=== PATIENT | female | born 1940 | race Caucasian/White ===

== ENCOUNTER → 2020-05-02 | Outpatient (CLI) | payer MEDICARE ==
--- NOTE | 2020-05-02 17:28 | RAD ---
Chest radiograph 05/02/2020 12:00 AM INDICATION: Shortness of breath COMPARISON: None available TECHNIQUE: Frontal and lateral views of the chest are provided. FINDINGS: The cardiomediastinal silhouette is within normal limits. There are no pleural effusions. There is no pulmonary vascular congestion. There is no pneumothorax. Bandlike density at the lateral right mid lung and right lung base most favor subsegmental atelectasis versus scarring. Pulmonary emphysematous changes are identified. No significant osseous abnormality is identified. Dextro convex scoliosis of the thoracic spine is noted. IMPRESSION: COPD changes with right basilar and mid lung subsegmental atelectasis versus scarring. Electronically signed by: Blanca Sharma MD (05/02/2020 5:25 PM) [id number]
== END | disposition home or self-care (01) ==
LOC: RAD 12:56
PROVIDERS: ATTEND Family Medicine
DX: J43.8 Other emphysema (principal); J98.11 Atelectasis; J98.4 Other disorders of lung; M41.84 Other forms of scoliosis, thoracic region
CPT/HCPCS: 71046

== ENCOUNTER → 2021-01-22 | Outpatient (CLI) | payer MEDICARE ==
--- NOTE | 2021-01-22 17:56 | RAD ---
Left humerus 2 views. HISTORY: Pain and tenderness distal left humerus 2 views were taken of the left humerus. There is no fracture or osseous abnormality noted in the left humerus. IMPRESSION: 1. Negative left humerus. Electronically signed by: Sunil Correa MD (01/22/2021 5:53 PM) [facility]
== END ==
LOC: RAD 14:13
PROVIDERS: ATTEND Family Medicine
DX: M25.522 Pain in left elbow (principal)
CPT/HCPCS: 73060

== ENCOUNTER → 2021-03-06 | Outpatient (CLI) | payer MEDICARE ==
--- NOTE | 2021-03-06 10:19 | KCIC ---
Examination: MRI of the left shoulder without contrast HISTORY: History of left shoulder pain, weakness COMPARISON: None available TECHNIQUE: Multiplanar, multisequence MR imaging of the left shoulder performed without contrast. FINDINGS: The long head of the biceps tendon within the bicipital groove. The attachment of the long head the b iceps tendon to the superior labral anchor grossly appears intact. The attachment of the subscapulari s tendon grossly appears intact. The attachment of the supraspinatus, infraspinatus tendon grossly ap pears intact. There is mild increased signal identified in the supraspinatus tendon likely tendinosis . The muscle bulk grossly appears unremarkable. Moderate degenerative changes acromioclavicular joint. The acromion is type II. There is mild increas ed signal identified in the superior labrum extending posteriorly likely tear. Fat is present within the rotator interval. Moderate degenerative changes acromioclavicular joint, glenohumeral joint. IMPRESSION: 1. Mild increased signal identified in the superior labrum extending posteriorly likely tear. 2. Mild tendinosis supraspinatus tendon. 3. Moderate degenerative changes acromioclavicular joint, glenohumeral joint. Electronically signed by: Josh Martinez MD (03/06/2021 10:17 AM) [id number]
== END ==
LOC: KCIC MRI 08:29
PROVIDERS: ATTEND Orthopaedic Surgery
DX: M19.012 Primary osteoarthritis, left shoulder (principal); M77.8 Other enthesopathies, not elsewhere classified; Z68.22 Body mass index [BMI] 22.0-22.9, adult
CPT/HCPCS: 73221

== ENCOUNTER → 2021-03-22 | Outpatient (CLI) | payer MEDICARE ==
[~2021-03-22] MED LIST: GADOTERATE 5 MMOL/10ML VIAL. IVP ONE
[2021-03-22 08:44] LABS: GFR 53.2
--- NOTE | 2021-03-22 11:59 | RAD ---
STUDY: MR EXTREM UP LEFT WO/W CM INDICATION: Persistent left arm pain localizing to the distal humerus. COMPARISON: No prior MRI of this region. TECHNIQUE: Multiplanar MR imaging of the left upper arm performed both prior to and after the intrave nous administration of 10 cc Clariscan. The [id number] is centered on the mid to distal humerus to include the elbow joint. FINDINGS: Comminuted, pathologic fracture of the distal humeral diaphysis with mild radial/dorsal apex angulati on and fragment displacement by up to approximately 0.5 cm. Marrow infiltration by an enhancing lesio n over a length of up to 6.3 cm extending distal to the greater degree than proximal to the fracture site. Extraosseous rind of enhancing soft tissue surrounding the fracture measuring up to 5.7 cm in l ength and up to 1.2 cm in thickness. Surrounding muscular edema. IMPRESSION: Comminuted and mildly angulated and displaced pathologic fracture at the distal humeral diaphysis. Th is is occurring in the setting of a destructive osseous lesion replacing the marrow over a length of approximately 6.3 cm . Circumferential rind of extraosseous tumor over a length of 5.7 cm and measuri ng up to 1.2 cm in thickness with surrounding edema. No additional osseous lesion is identified but m etastatic disease should be considered. An isolated primary osseous malignancy is not fully excluded but would be less likely given patient age. A bone scan could be performed to further assess. Electronically signed by: ABRAHAN NICOLAS MD (03/22/2021 11:57 AM) [id number]
== END ==
LOC: MRI 08:22
PROVIDERS: ATTEND Orthopaedic Surgery
DX: S42.302A Unspecified fracture of shaft of humerus, left arm, initial encounter for closed fracture (principal); X58.XXXA Exposure to other specified factors, initial encounter; Y93.89 Activity, other specified; Y92.89 Other specified places as the place of occurrence of the external cause; Y99.8 Other external cause status
CPT/HCPCS: 36415; 73220; 82565; A9575

== ENCOUNTER 2021-03-26 07:34 | Outpatient (CLI) | payer MEDICARE ==
[~2021-03-26] VITALS: Ht 165.1 cm; Wt 57.2 kg
[2021-03-26 08:05] VITALS: BP 142/70
[2021-03-26 08:17] LABS: BASO # 0.1 x10^3/uL (0.0-0.2); BASO % 1 % (0-3); EOS # 0.2 x10^3/uL (0.0-0.7); EOS % 1 % (0-3); HEMATOCRIT 39.8 % (36.0-47.0); HEMOGLOBIN 13.6 g/dL (12.0-15.5); LYMPH # 3.9 x10^3/uL (1.0-4.8); LYMPH % 22 % (24-48); MEAN CORPUSCULAR HEMOGLOBIN 32 pg (25-35); MEAN CORPUSCULAR HGB CONC 34 g/dL (31-37); MEAN CORPUSCULAR VOLUME 94 fL (79-100); MONO # 1.8 x10^3/uL (0.0-1.1); MONO % 10 % (0-9); NEUT # 11.3 x10^3/uL (1.8-7.7); NEUT % 65 % (31-73); PLATELET COUNT 487 x10^3/uL (140-400); RED BLOOD COUNT 4.22 x10^6/uL (3.50-5.40); WHITE BLOOD COUNT 17.3 x10^3/uL (4.0-11.0)
[2021-03-26] MEDS ORDERED: oxycodone (08:21)
[2021-03-26 08:27] LABS: CALCIUM 9.2 mg/dL (8.5-10.1); CREATININE 0.9 mg/dL (0.6-1.0); GFR 60.1
[2021-03-26 08:33] LABS: ALBUMIN 3.8 g/dL (3.4-5.0); ALBUMIN/GLOBULIN RATIO 1.1 (1.0-1.7); TOTAL BILIRUBIN 0.8 mg/dL (0.2-1.0); TOTAL PROTEIN 7.3 g/dL (6.4-8.2)
[2021-03-26 08:35] LABS: PROTHROMBIN TIME PATIENT 12.1 SEC (11.7-14.0)
--- NOTE | 2021-03-26 09:13 | NUR ---
Dr. Díaz spoke w/ Dr. Araya, Dr. Wallace. Plan is to have patient see Dr. Herrera/Ortho at [facility]. Procedure today postponed. Dr. Aguirre is calling Dr. Herrera to schedule patient/explain severity. [facility] will call patient w/ appointment time. Sling provided for patient to stabilize arm. All belongings w/ patient at time of discharge. Dr. Díaz spoke w/ patient at length. Verbalized understanding. No PIV started. Patient's son driving home.
== END 2021-03-26 09:29 | disposition home or self-care (01) ==
LOC: INTRAD 07:34
PROVIDERS: ATTEND Family Medicine
DX: Z51.81 Encounter for therapeutic drug level monitoring (principal)
CPT/HCPCS: 36415; 80053; 85025; 85610